=== PATIENT | male | born 1940 | race Two or more races ===

== ENCOUNTER 2020-01-21 09:31 | Outpatient (CLI) | payer OTHER | END 2020-01-21 09:35 | disposition home or self-care (01) | LOC: EDBD 09:31 → LAB 09:31 | PROVIDERS: ATTEND Urology | DX: R97.20 Elevated prostate specific antigen [PSA] (principal); B96.29 Other Escherichia coli [E. coli] as the cause of diseases classified elsewhere ==

== ENCOUNTER → 2020-02-05 | Outpatient (CLI) | payer OTHER | END | disposition home or self-care (01) | LOC: SONOGRAMA 07:01 → EDBD 07:01 | PROVIDERS: ATTEND Urology | DX: R97.20 Elevated prostate specific antigen [PSA] (principal) ==

== ENCOUNTER 2022-12-29 10:00 | Inpatient (IN) | payer OTHER ==
[~2022-12-29] VITALS: Ht 180.3 cm; Wt 90.7 kg
[2022-12-29] MEDS ORDERED: LIPITOR40 M1 PO (12:24)
[2022-12-29] MEDS ORDERED: TAMS0.4C PO (12:24)
[2022-12-29] MEDS ORDERED: BUSPAR PO (12:25)
[2022-12-29] MEDS ORDERED: PROSCAR5 MG PO (12:25)
[2022-12-29] MEDS ORDERED: AVAPRO300 MG PO (12:25)
[2022-12-29] MEDS ORDERED: ZOLOFT50 MG PO (12:25)
[2022-12-29] MEDS ORDERED: ECOTRIN81 MG PO (12:26)
[2022-12-29] MEDS ORDERED: RAZADYNE ER16 MG PO (12:26)
[2023-01-03] MEDS ORDERED: NORVASC2.5 MG (11:41)
[2023-01-03] MEDS ORDERED: MAXIMUM D3325 MCG (11:41)
[2023-01-03] MEDS ORDERED: LISINOPRIL20 MG (11:41)
[2023-01-03] MEDS ORDERED: GABAPENTIN100 M2 (11:41)
[2023-01-03] MEDS ORDERED: BUSPIRONE HCL10 MG (11:42)
[2023-01-05] MEDS ORDERED: PERCOCET 5-3251 EACH PO (17:29)
[2023-01-05] MEDS ORDERED: DUI500 PO (17:29)
[2023-01-05] MEDS ORDERED: ELIQUIS2.5 MG PO (17:29)
== END 2023-01-05 20:52 | DRG 470 ==
LOC: O/R 01-03 05:00 → SURG 01-03 05:00 → SURH 01-03 07:00 → SURG 01-03 18:07
PROVIDERS: ADMIT Orthopaedic Surgery; ATTEND Orthopaedic Surgery
PROC: 3E0F7SF Introduction of Other Gas into Respiratory Tract, Via Natural or Artificial Opening (ICD-10-PCS; 2023-01-03)
PROC: 0SRC0J9 Replacement of Right Knee Joint with Synthetic Substitute, Cemented, Open Approach (ICD-10-PCS; principal; 2023-01-03 07:00)
DX: M17.11 Unilateral primary osteoarthritis, right knee (principal); D62 Acute posthemorrhagic anemia; M22.11 Recurrent subluxation of patella, right knee; I10 Essential (primary) hypertension